=== PATIENT | male | born 1935 ===

== ENCOUNTER 2021-10-05 02:06 | Emergency (ER) | payer MEDICARE, OTHER ==
[~2021-10-05] VITALS: Ht 167.6 cm; Wt 68.0 kg
--- NOTE | 2021-10-05 02:10 | NUR ---
Dr. Moon at bedside for MSE.
--- NOTE | 2021-10-05 02:23 | NUR ---
Xray at bedside.
[2021-10-05 02:43] LABS: CARBON DIOXIDE 28 mmol/L (21-32); CHLORIDE 105 mmol/L (98-107); CREATININE 1.4 mg/dL (0.6-1.3); GLUCOSE 90 mg/dL (74-106); POTASSIUM 3.2 mmol/L (3.5-5.1); UREA NITROGEN, BLOOD 21 mg/dL (7-18)
[2021-10-05 02:44] LABS: HEMATOCRIT 31.3 % (36.7-47.1); MEAN CORPUSCULAR HEMOGLOBIN 31.3 uug (23.8-33.4); MEAN CORPUSCULAR VOLUME 93.2 fL (73.0-96.2); PLATELET COUNT (AUTO) 300 K/uL (152-348)
[2021-10-05 02:55] LABS: ALANINE AMINOTRANSFERASE 13 U/L (16-63); ALKALINE PHOSPHATASE 85 U/L (50-136); ASPARTATE AMINOTRANSFERASE 11 U/L (15-37); BILIRUBIN,TOTAL 0.2 mg/dL (0.2-1.0); TOTAL PROTEIN, SERUM 5.9 g/dL (6.4-8.2)
[2021-10-05] MEDS ORDERED: IV NS 1000 ML 1,000 ML IV ONE (03:30)
[2021-10-05] MEDS ORDERED: POTA10TA21 PO (04:08)
--- NOTE | 2021-10-05 04:11 | NUR ---
Called [facility] for transport back to [facility], eta [phone].
--- NOTE | 2021-10-05 06:05 | NUR ---
[facility] arrived to ER to transport patient back to [facility], report and documentation given to EMT. Patient out of ER with steady gait, no acute signs of distress, VSS, all belongings taken.
[2021-10-05 06:06] VITALS: BP 125/56
== END 2021-10-05 06:12 ==
LOC: ER 02:08
DX: G47.33 Obstructive sleep apnea (adult) (pediatric) (principal); E87.6 Hypokalemia; E11.9 Type 2 diabetes mellitus without complications; Z88.0 Allergy status to penicillin; Z20.822 Contact with and (suspected) exposure to COVID-19
CPT/HCPCS: 36415; 70030-TC; 71045; 85025; 87400; 93005; A4663; J7030